=== PATIENT | male | born 1960 | race Caucasian/White ===

== ENCOUNTER → 2018-11-24 10:03 | Outpatient (CLI) | payer OTHER, SELFPAY ==
--- NOTE | 2018-11-24 10:09 | CT_ITS ---
STUDY: CT ABDOMEN AND PELVIS WITH AND WITHOUT CONTRAST REASON FOR EXAM: Male, 58 years old. Hematuria. History of stones. RADIATION DOSAGE (If Supplied By Facility): CTDIvol = ( 17.11 ) mGy, DLP = ( 1260.86 ) mGycm TECHNIQUE: Transaxial images were obtained from the dome of the diaphragm to the symphysis pubis without oral contrast. 100ML IV Isovue 300 was administered. Sagittal and coronal images were reconstructed. Individualized dose optimization techniques were used for this CT. COMPARISON: None. FINDINGS: Mild degree of increased markings at the lung bases suggestive of bibasilar atelectasis. The visualized portions of the heart are within normal limits. There is decreased attenuation of the liver consistent with steatosis. Normal gallbladder and extrahepatic biliary system. Normal spleen. Normal pancreas. Normal bilateral adrenal glands. Mild degree of right hydronephrosis with fullness of the right renal pelvis. Normal left kidney. There is a small hiatal hernia. Normal small intestine. Normal colon. The appendix is visualized and appears normal. There is scattered atherosclerotic calcification of the abdominal aorta, without a demonstrated aneurysm. Normal inferior vena cava. Normal retroperitoneum. Normal urinary bladder. There are prostatic calcifications. Normal abdominal wall. Normal osseous structures. CT/CT Abd/Pelvis W/WO Contrast IMPRESSION: Mild degree of right hydronephrosis. Electronically Signed: Jason Amor, at 11:43 EDT , Service support ,
[2018-11-24 10:51] LABS: CREATININE FINGERSTICK 1.3 mg/dL (0.70-1.30)
== END ==
PROVIDERS: Family Provider Internal Medicine; PCP Family Medicine; Referring Provider Family Medicine; Visit Provider Nurse Practitioner Adult Health
DX: R31.29 Other microscopic hematuria (principal); Z87.442 Personal history of urinary calculi; R59.1 Generalized enlarged lymph nodes
CPT/HCPCS: 74178; Q9967

== ENCOUNTER → 2019-01-15 15:32 | Outpatient (CLI) | payer OTHER, SELFPAY ==
[2019-01-15 18:04] LABS: PSA,Total - Annual Screen 0.72 ng/mL (0.00-4.00)
== END ==
PROVIDERS: Family Provider Family Medicine; PCP Family Medicine; Referring Provider Nurse Practitioner Adult Health; Visit Provider Nurse Practitioner Adult Health
DX: Z12.5 Encounter for screening for malignant neoplasm of prostate (principal)
CPT/HCPCS: 36415; 84153; G0103

== ENCOUNTER → 2019-02-21 07:13 | Outpatient (CLI) | payer OTHER, SELFPAY ==
--- NOTE | 2019-02-21 07:22 | CT_ITS ---
STUDY: CT CHEST WITH CONTRAST REASON FOR EXAM: Male, 58 years old. RADIATION DOSAGE (If Supplied By Facility): CTDIvol = ( 17.54 ) mGy, DLP = ( 626.33 ) mGycm TECHNIQUE: Transaxial imaging was performed following intravenous administration of 100 IV Isovue 300. Individualized dose optimization techniques were used for this CT. COMPARISON: None. FINDINGS: There is no evidence of lymphadenopathy in the axillary area on either side. No retrosternal, paratracheal or hilar adenopathy. The lungs are normal. There is no demonstrated pleural abnormality. Normal heart and pericardium. Normal mediastinum. Normal hilar regions. Normal enhanced pulmonary arteries. Normal aorta arch and descending thoracic aorta. Normal osseous structures. There is no demonstrated abnormality of the visualized upper abdomen. CT/Chest WITH Contrast IMPRESSION: Normal enhanced CT Chest examination. No lymphadenopathy seen in the axillary areas nor within the thoracic cavity. Electronically Signed: Charlotte Cabrera, at 8:50 EDT Tel , Service support ,
== END ==
PROVIDERS: Family Provider Family Medicine; PCP Family Medicine; Referring Provider Family Medicine; Visit Provider Family Medicine
DX: R59.0 Localized enlarged lymph nodes (principal); M79.622 Pain in left upper arm; M79.621 Pain in right upper arm
CPT/HCPCS: 71260; Q9967

== ENCOUNTER → 2019-12-12 12:47 | Outpatient (CLI) | payer OTHER, SELFPAY ==
--- NOTE | 2019-12-12 12:53 | CT_ITS ---
STUDY: CT MAXILLOFACIAL SINUSES REASON FOR EXAM: Male, 59 years old. SINUSITIS X 6 MONTHS RADIATION DOSAGE (If Supplied By Facility): CTDIvol = ( 33.45 ) mGy, DLP = ( 851.63 ) mGycm TECHNIQUE: The patient was scanned in a multi detector CT scanner. High resolution axial imaging was performed without the administration of intravenous contrast material. Sagittal and coronal images were reconstructed. Individualized dose optimization techniques were used for this CT. COMPARISON: None. FINDINGS: FRONTAL SINUSES: Normal aeration, without mucosal inflammatory disease. ETHMOIDAL SINUSES: Normal aeration, without mucosal inflammatory disease. MAXILLARY SINUSES: Normal aeration, without mucosal inflammatory disease. SPHENOIDAL SINUSES: Normal aeration, without mucosal inflammatory disease. There is patency of the bilateral maxillary infundibuli with normal uncinate processes, ethmoid bullae, and hiatus semilunaris. Normal bilateral middle turbinates. Normal bilateral inferior turbinates. There is a left sided nasal septal deviation with a left sided nasal septal spur. There is patency of the bilateral nasal airways. The visualized osseous structures are normal. The visualized bilateral orbital contents are normal. CT/Sinus/Facial Bone IMPRESSION: Nasal septal deviation towards the left side of the midline with a septal spur. Electronically Signed: Jason Amor, at 14:51 EDT , Service support ,
--- NOTE | 2019-12-12 13:00 | RAD_ITS ---
STUDY: X-RAY CHEST REASON FOR EXAM: Male, 59 years old. COUGHING SINCE JUNE ALONG WITH HEADACHES. TECHNIQUE: PA and lateral views of the chest. COMPARISON: Comparison is made with prior examination dated December 15, 2015. FINDINGS: Hyperinflation. Scattered calcified granulomas. There is no demonstrated pleural abnormality. Normal size heart. Normal mediastinum and mike. Normal visualized pulmonary arteries. There is atherosclerotic calcification of the aortic arch with tortuosity. There are degenerative changes of the visualized thoracic spine. Normal visualized ribs, clavicles, and shoulders. There is no demonstrated abnormality of the visualized soft tissue structures of the upper abdomen. RAD/Chest PA and Lateral IMPRESSION: Hyperinflation. No acute abnormality is seen. Electronically Signed: Jason Amor, at 14:41 EDT , Service support ,
== END ==
PROVIDERS: PCP Family Medicine; Referring Provider Otolaryngology; Visit Provider Otolaryngology
DX: J32.9 Chronic sinusitis, unspecified (principal); R05 Cough
CPT/HCPCS: 70486; 71046

== ENCOUNTER → 2020-03-19 10:55 | Outpatient (CLI) | payer OTHER, SELFPAY ==
[2020-03-19 11:18] LABS: Absolute Lymphocyte Count 1.11 X10^3/uL (0.83-4.51); Absolute Neutrophil Count 2.6 X10^3/uL (2.0-7.7); Basophil# 0.02 X10^3/uL; Basophil% 0.5 % (0-1); Eosinophil# 0.02 X10^3/uL; Eosinophils% 0.5 % (0-5); Hematocrit 43.2 % (40-54); Hemoglobin 14.7 g/dL (13.0-16.5); Lymphocyte # 1.11 X10^3/ul (4.0); Mean Corpuscular Hgb 29.6 pg (27.0-32.0); Mean Corpuscular Volume 87.1 fL (80-94); Mean Platelet Vol. 8.7 fl (6.2-12.0); Monocyte# 0.36 X10^3/uL; Monocyte% 8.8 % (0-10); NRBC Flagged by Analyzer 0 % (0-5); Neutrophil # 2.59 X10^3/uL (2.7-7.7); Platelet Count 204 K/mm3 (150-450); RBC Distribution Width CV 13.1 % (11.6-14.6); RBC Distribution Width SD 40.6 fl (35.1-43.9); Red Blood Count 4.96 M/mm3 (4.6-6.2); White Blood Count 4.1 K/mm3 (4.4-11.0)
[2020-03-22 03:06] LABS: Alternaria tenuis <0.10 kU/L (Class 0); Ash, White <0.10 kU/L (Class 0); Aspergillus fumigatus <0.10 kU/L (Class 0); Bermuda Grass <0.10 kU/L (Class 0); Birch <0.10 kU/L (Class 0); Black Walnut <0.10 kU/L (Class 0); Cat Hair / Dander,Stand <0.10 kU/L (Class 0); Cedar, Mountain <0.10 kU/L (Class 0); Cladosporium herbarum <0.10 kU/L (Class 0); Cockroach, American <0.10 kU/L (Class 0); Cottonwood <0.10 kU/L (Class 0); D farinae Mite <0.10 kU/L (Class 0); D pteronyssinus <0.10 kU/L (Class 0); Dog Epithelia <0.10 kU/L (Class 0); Elm, American White <0.10 kU/L (Class 0); Immunoglobulin E 7 IU/mL (6-495); Maple/Box Elder <0.10 kU/L (Class 0); Mulberry, White <0.10 kU/L (Class 0); Oak, White <0.10 kU/L (Class 0); Pecan <0.10 kU/L (Class 0); Penicillium Notatum <0.10 kU/L (Class 0); Pigweed, Rough <0.10 kU/L (Class 0); Ragweed, Short/Common <0.10 kU/L (Class 0); Russian Thistle <0.10 kU/L (Class 0); Sheep Sorrel <0.10 kU/L (Class 0); Sycamore, American <0.10 kU/L (Class 0); Timothy Grass <0.10 kU/L (Class 0)
[2020-03-22 16:07] LABS: Aspirgillus flavus Negative (Neg:<1:1); Aspirgillus fumigatus Negative (Neg:<1:1); Aspirgillus niger Negative (Neg:<1:1); Cytoplasmic Ab (C-ANCA) <1:20 titer (Neg:<1:20)
[2020-03-23 04:44] LABS: Immunoglobulin E 6 IU/mL (6-495); Mouse Urine <0.10 kU/L (Class 0); Perinuclear Ab (P-ANCA) <1:20 titer (Neg:<1:20)
== END ==
PROVIDERS: PCP Family Medicine; Referring Provider Internal Medicine Critical Care Medicine; Visit Provider Internal Medicine Critical Care Medicine
DX: R05 Cough (principal)
CPT/HCPCS: 36415; 82785; 85025; 86003; 86256; 86606

== ENCOUNTER → 2020-05-27 06:24 | Outpatient (CLI) | payer OTHER, SELFPAY ==
--- NOTE | 2020-05-27 10:36 | BRONCHALL_ITS ---
Bronchoprovocation Challenge - Bronchoprovocation Challenge Bronchoprovocation Challenge: BRONCHOPROVOCATION STUDY INTERPRETATION Brief HPI: Patient is a 59 year old male, currently under the care of Dr. Richardson, who presents to [facility] for a bronchoprovocation study secondary to diagnosis of chronic cough. Respiratory therapist reports good effort and reproducible results. Interpretation: Initial spirometry showed no large airways obstructive ventilatory defect. The patient was then given increasingly concentrated doses of methacholine in a stepwise fashion, using a modified ATS protocol. The patient had a significant reduction in FEV1 by 25% and a calculated PD20 of 0.623. Impression: Hyperactivity confirmed at a level nonspecific for asthma
== END ==
PROVIDERS: PCP Family Medicine; Referring Provider Internal Medicine Critical Care Medicine; Visit Provider Internal Medicine Critical Care Medicine
DX: R05 Cough (principal)
CPT/HCPCS: 94070; 95070; J3490; J7674

== ENCOUNTER → 2020-08-13 10:07 | Outpatient (CLI) | payer OTHER, SELFPAY ==
[2020-08-13 10:29] LABS: Absolute Lymphocyte Count 1.01 X10^3/uL (0.83-4.51); Absolute Neutrophil Count 2.9 X10^3/uL (2.0-7.7); Basophil# 0.01 X10^3/uL; Basophil% 0.2 % (0-1); Eosinophil# 0.03 X10^3/uL; Eosinophils% 0.7 % (0-5); Hematocrit 44.1 % (40-54); Hemoglobin 15.1 g/dL (13.0-16.5); Lymphocyte # 1.01 X10^3/ul (4.0); Lymphocyte % 23.6 % (19-41); Mean Corp Hgb Conc 34.2 g/dL (32-36); Mean Corpuscular Hgb 29.3 pg (27.0-32.0); Mean Corpuscular Volume 85.5 fL (80-94); Mean Platelet Vol. 8.9 fl (6.2-12.0); Monocyte# 0.33 X10^3/uL; Monocyte% 7.7 % (0-10); NRBC Flagged by Analyzer 0 % (0-5); Neutrophil # 2.88 X10^3/uL (2.7-7.7); Neutrophil % 67.3 % (47-70); Platelet Count 220 K/mm3 (150-450); RBC Distribution Width SD 40.2 fl (35.1-43.9); Red Blood Count 5.16 M/mm3 (4.6-6.2); White Blood Count 4.3 K/mm3 (4.4-11.0)
[2020-08-16 08:08] LABS: Alternaria alternata <0.10 kU/L (Class 0); Bermuda Grass <0.10 kU/L (Class 0); Bluegrass, Kentucky <0.10 kU/L (Class 0); Cat Hair/Dander, Standard <0.10 kU/L (Class 0); D farinae Mite <0.10 kU/L (Class 0); D pteronyssinus <0.10 kU/L (Class 0); Dog Epithelia <0.10 kU/L (Class 0); Elm, American White <0.10 kU/L (Class 0); Oak, White <0.10 kU/L (Class 0); Plantain, English <0.10 kU/L (Class 0); Ragweed, Short/Common <0.10 kU/L (Class 0)
[2020-08-16 20:07] LABS: Aspirgillus flavus Negative (Neg:<1:1); Aspirgillus fumigatus Negative (Neg:<1:1); Aspirgillus niger Negative (Neg:<1:1)
[2020-08-17 04:36] LABS: Immunoglobulin E 6 IU/mL (6-495)
[2020-08-17 04:42] LABS: Mouse Urine <0.10 kU/L (Class 0)
== END ==
PROVIDERS: PCP Family Medicine; Referring Provider Nurse Practitioner Acute Care; Visit Provider Nurse Practitioner Acute Care
DX: J45.909 Unspecified asthma, uncomplicated (principal)
CPT/HCPCS: 36415; 82785; 85025; 86003; 86606

== ENCOUNTER → 2020-08-26 10:30 | Outpatient (CLI) | payer OTHER, SELFPAY ==
[2020-08-18 10:17] VITALS: BMI 27.8
[2020-08-26 10:47] LABS: Bacteria 0 SEEN /hpf (None Seen); Mucous, Urine 0 SEEN /hpf (<or=2+); White Blood Cells 0 SEEN /hpf (0-5)
[2020-08-26 10:52] LABS: Color, Urine Yellow (Yellow); Glucose, Dipstick Normal (Normal); Ketone-Dipstick 5 mg/dl (Negative); Leukocyte Esterase-Dipstick Negative /ul (Negative); Nitrite-Dipstick Negative (Negative); Occult Blood-Urine 25 /ul (Negative); Protein-Dipstick Negative (Negative); Urine Bilirubin Dipstick Negative (Negative); Urine Clarity Clear (Clear); Urine Urobilinogen Normal (Normal)
[2020-08-26 10:57] LABS: Red Blood Cells-Urine 0-5 SEEN /hpf (0-5); Squamous Epithelial Cells - UA 0-5 SEEN /hpf (0-5)
[2020-08-26 11:28] LABS: Anion Gap 6 (5-15); BUN 18 mg/dL (7-18); Calcium,Total 8.4 mg/dL (8.5-10.1); Chloride 106 mmol/L (98-107); EST Glomerular Filtration Rate 92 mL/min (>60); Est Glom Filt Rate - Afr Amer 111 mL/min (>60); Glucose 105 mg/dL (74-106); PSA,Total - Annual Screen 0.65 ng/mL (0.00-4.00); Potassium 4.1 mmol/L (3.5-5.1); Sodium Level 140 mmol/L (136-145)
== END ==
PROVIDERS: PCP Family Medicine; Referring Provider Nurse Practitioner Adult Health; Visit Provider Nurse Practitioner Adult Health
DX: R31.0 Gross hematuria (principal); N40.1 Benign prostatic hyperplasia with lower urinary tract symptoms; N52.8 Other male erectile dysfunction; Z12.5 Encounter for screening for malignant neoplasm of prostate
CPT/HCPCS: 36415; 80048; 81001; 84153; 84403; G0103

== ENCOUNTER → 2020-08-27 07:55 | Outpatient (CLI) | payer OTHER, SELFPAY ==
[2020-08-18 10:17] VITALS: BMI 27.8
[2020-08-27 09:56] LABS: Cholesterol 231 mg/dL (200); High Density Lipoprotein 43 mg/dL; Triglycerides 306 mg/dL; Very Low Density Lipoprotein 61 mg/dL (5-40)
== END ==
PROVIDERS: PCP Family Medicine; Referring Provider Nurse Practitioner Adult Health; Visit Provider Nurse Practitioner Adult Health
DX: E29.1 Testicular hypofunction (principal)
CPT/HCPCS: 36415; 80061

== ENCOUNTER → 2020-09-02 11:46 | Outpatient (CLI) | payer SELFPAY ==
[2020-08-18 10:17] VITALS: BMI 27.8
[2020-09-02 14:55] LABS: Hematocrit 45.5 % (40-54); Hemoglobin 15.3 g/dL (13.0-16.5); Mean Corp Hgb Conc 33.6 g/dL (32-36); Mean Corpuscular Hgb 29.3 pg (27.0-32.0); Mean Platelet Vol. 9.1 fl (6.2-12.0); Platelet Count 248 K/mm3 (150-450); RBC Distribution Width CV 13.3 % (11.6-14.6); RBC Distribution Width SD 42.1 fl (35.1-43.9); Red Blood Count 5.23 M/mm3 (4.6-6.2); White Blood Count 4.9 K/mm3 (4.4-11.0)
[2020-09-02 15:19] LABS: Luteinizing Hormone 5.7 mIU/mL; Prolactin 4.4 ng/mL
== END ==
PROVIDERS: PCP Family Medicine; Referring Provider Nurse Practitioner Adult Health; Visit Provider Nurse Practitioner Adult Health
DX: E29.1 Testicular hypofunction (principal)
CPT/HCPCS: 36415; 83002; 84146; 85027

== ENCOUNTER → 2021-05-26 10:40 | Outpatient (CLI) | payer SELFPAY ==
--- NOTE | 2021-05-26 09:34 | CYSPIN_PTH ---
PATIENT: SONA LEONARD LOC: [facility] U#:[id number] AGE/SX: 64/M ROOM: RE05/26/[address]: FRANKO [place] : 1960 BED: DIS: SPEC #: [id number] RECD: 05/26/21 13:01 STATUS: SINDY WYATT #: [id number] JODIE: 05/26/21 09:[address]: Alida Varela NP DEPT: CYTOLOGY RECD BY: Mary Kate Sadler ENTERED: 05/26/21 13:01 SP TYPE: CYSPIN FL DEJAN DR: Dr. Mark Sahu MD Tissues: Urine Procedures: Pap Stain (control) Special Stain Group II Cytospin Fluid HEADER OPERATION: Not noted PRE-OP DIAGNOSIS: Asymptomatic microscopic hematuria TISSUE SUBMITTED: Urine for cytology DIAGNOSIS CYTOLOGY Urine for cytology (cytospin): Negative for malignant cells. See comment. JACKELYN:sebastian 05/27/2021 COMMENT The specimen predominantly consists of squamous epithelial cells. A few red blood cells are also noted. CYTOLOGY STUDY Slides are reviewed. CYTOLOGY GROSS Received is 50 ml of yellow clear fluid labeled with the patient's name and and designated per the requisition as urine. Submitted for cytology preparation. / sebastian 05/26/2021 TC:5 CPT: 62299
[2021-05-26 11:20] LABS: Cytology, Body Fluid / CSF SEE PATHOLOGY REPORT
[2021-05-26 11:20] LABS: Bacteria 0 SEEN /hpf (None Seen); Mucous, Urine 0 SEEN /hpf (<or=2+); Red Blood Cells-Urine 0 SEEN /hpf (0-5); Squamous Epithelial Cells - UA 0 SEEN /hpf (0-5); White Blood Cells 0 SEEN /hpf (0-5)
[2021-05-26 11:35] LABS: Color, Urine Yellow (Yellow); Glucose, Dipstick Normal (Normal); Ketone-Dipstick Negative (Negative); Leukocyte Esterase-Dipstick Negative /ul (Negative); Nitrite-Dipstick Negative (Negative); Occult Blood-Urine 25 /ul (Negative); Protein-Dipstick Negative (Negative); Urine Bilirubin Dipstick Negative (Negative); Urine Clarity Clear (Clear); Urine Urobilinogen Normal (Normal)
== END ==
PROVIDERS: PCP Family Medicine; Visit Provider Nurse Practitioner Adult Health
DX: R31.21 Asymptomatic microscopic hematuria (principal)
CPT/HCPCS: 81001; 88108; 88313

== ENCOUNTER → 2021-08-20 15:20 | Outpatient (CLI) | payer MEDICARE, SELFPAY | PROVIDERS: PCP Family Medicine; Visit Provider Otolaryngology Otolaryngology/Facial Plastic Surgery | DX: Z11.59 Encounter for screening for other viral diseases (principal) | CPT/HCPCS: 87635; U0005; U0003 ==

== ENCOUNTER → 2022-07-08 | Outpatient (CLI) | payer SELFPAY ==
--- NOTE | 2022-07-08 08:30 | EKG12_ITS ---
Test Reason : PRE-OP Blood Pressure : / mmHG Vent. Rate : 065 BPM Atrial Rate : 065 BPM P-R Int : 150 ms QRS Dur : 100 ms QT Int : 382 ms P-R-T Axes : 054 067 043 degrees QTc Int : 397 ms Normal sinus rhythm Normal ECG Confirmed by EYAL MOLINA, KIT ([id number]), editor book ROC LAL ([id number]) on 07/13/2022 10:55:10 AM Referred By: RICKI Confirmed By:ROSLYN BIRCH MD
--- NOTE | 2022-07-08 08:42 | RAD_ITS ---
EXAM: XR CHEST, 2 VIEWS CLINICAL INDICATION: PRE OP TECHNIQUE: Frontal and lateral views of the chest. This report was created using [employer] report generation technology. COMPARISON: XR Chest dated 12/12/2019 FINDINGS: LUNGS AND PLEURAL SPACES: Normal. No consolidation or edema. No pneumothorax. No effusion. HEART: Normal heart size. MEDIASTINUM: No mediastinal or hilar mass. BONES/JOINTS: No acute abnormality. SOFT TISSUES: Normal. RAD/Chest PA and Lateral IMPRESSION: No acute cardiopulmonary abnormality. No interval change. Electronically Signed: Mitul Jones MD at 9:50 EST ,
[2022-07-08 09:27] LABS: Absolute Lymphocyte Count 1.15 X10^3/uL (0.83-4.51); Absolute Neutrophil Count 2.9 X10^3/uL (2.0-7.7); Basophil# 0.01 X10^3/uL; Basophil% 0.2 % (0-1); Eosinophil# 0.02 X10^3/uL; Eosinophils% 0.4 % (0-5); Hematocrit 45.6 % (40-54); Hemoglobin 15.3 g/dL (13.0-16.5); Lymphocyte # 1.15 X10^3/ul (0.83-4.51); Lymphocyte % 25.8 % (19-41); Mean Corp Hgb Conc 33.6 g/dL (32-36); Mean Corpuscular Hgb 29.3 pg (27.0-32.0); Mean Corpuscular Volume 87.4 fL (80-94); Monocyte# 0.38 X10^3/uL; Monocyte% 8.5 % (0-10); NRBC Flagged by Analyzer 0 % (0-5); Neutrophil # 2.87 X10^3/uL (2.7-7.7); Neutrophil % 64.7 % (47-70); Platelet Count 209 K/mm3 (150-450); RBC Distribution Width CV 12.7 % (11.6-14.6); RBC Distribution Width SD 40.5 fl (35.1-43.9); Red Blood Count 5.22 M/mm3 (4.6-6.2); White Blood Count 4.5 K/mm3 (4.4-11.0)
[2022-07-08 10:03] LABS: Anion Gap 5 (5-15); BUN 15 mg/dL (7-18); BUN/Creat Ratio 16.8 RATIO (10-20); Chloride 105 mmol/L (98-107); EST Glomerular Filtration Rate 92 mL/min (>60); Est Glom Filt Rate - Afr Amer 111 mL/min (>60); Glucose 104 mg/dL (74-106); Potassium 4.2 mmol/L (3.5-5.1); Sodium Level 138 mmol/L (136-145)
== END | disposition home or self-care (01) ==
PROVIDERS: PCP Family Medicine; Visit Provider Student in an Organized Health Care Education/Training Program
DX: Z01.810 Encounter for preprocedural cardiovascular examination (principal)
CPT/HCPCS: 36415; 71046; 80048; 85025; 93005

== ENCOUNTER → 2022-08-16 | Outpatient (CLI) | payer SELFPAY ==
[2022-08-16 12:15] LABS: Absolute Lymphocyte Count 1.33 X10^3/uL (0.83-4.51); Absolute Neutrophil Count 2.7 X10^3/uL (2.0-7.7); Basophil# 0.01 X10^3/uL; Basophil% 0.2 % (0-1); Eosinophil# 0.03 X10^3/uL; Eosinophils% 0.7 % (0-5); Hematocrit 44.3 % (40-54); Hemoglobin 15.1 g/dL (13.0-16.5); Lymphocyte # 1.33 X10^3/ul (0.83-4.51); Lymphocyte % 30.1 % (19-41); Mean Corp Hgb Conc 34.1 g/dL (32-36); Mean Corpuscular Hgb 29.8 pg (27.0-32.0); Mean Corpuscular Volume 87.5 fL (80-94); Mean Platelet Vol. 9.4 fl (6.2-12.0); Monocyte# 0.32 X10^3/uL; Monocyte% 7.2 % (0-10); NRBC Flagged by Analyzer 0 % (0-5); Neutrophil # 2.72 X10^3/uL (2.7-7.7); Neutrophil % 61.6 % (47-70); Platelet Count 231 K/mm3 (150-450); RBC Distribution Width CV 13.1 % (11.6-14.6); RBC Distribution Width SD 41.7 fl (35.1-43.9); Red Blood Count 5.06 M/mm3 (4.6-6.2); White Blood Count 4.4 K/mm3 (4.4-11.0)
[2022-08-16 12:31] LABS: Anion Gap 4 (5-15); BUN 18 mg/dL (7-18); BUN/Creat Ratio 18.1 RATIO (10-20); Chloride 104 mmol/L (98-107); Creatinine, Serum 0.99 mg/dL (0.70-1.30); EST Glomerular Filtration Rate 82 mL/min (>60); Est Glom Filt Rate - Afr Amer 99 mL/min (>60); Glucose 97 mg/dL (74-106); PSA,Total - Annual Screen 0.96 ng/mL (0.00-4.00); Potassium 4.1 mmol/L (3.5-5.1); Sodium Level 137 mmol/L (136-145)
== END | disposition home or self-care (01) ==
PROVIDERS: PCP Family Medicine; Referring Provider Student in an Organized Health Care Education/Training Program; Visit Provider Student in an Organized Health Care Education/Training Program
DX: Z01.818 Encounter for other preprocedural examination (principal); Z12.5 Encounter for screening for malignant neoplasm of prostate
CPT/HCPCS: 36415; 80048; 84153; 85025; G0103

== ENCOUNTER → 2023-08-09 | Outpatient (CLI) | payer SELFPAY ==
[2023-08-09 10:18] LABS: PSA,Total - Annual Screen 0.72 ng/mL (0.00-4.00)
== END | disposition home or self-care (01) ==
LOC: LAB 08:32
PROVIDERS: PCP Family Medicine; Referring Provider Nurse Practitioner; Visit Provider Nurse Practitioner
DX: Z12.5 Encounter for screening for malignant neoplasm of prostate (principal)
CPT/HCPCS: 36415; 84153; G0103

== ENCOUNTER → 2024-07-25 | Outpatient (CLI) | payer SELFPAY | END | disposition home or self-care (01) | LOC: LABSPEC 15:58 | PROVIDERS: PCP Family Medicine; Referring Provider Otolaryngology Otolaryngology/Facial Plastic Surgery; Visit Provider Otolaryngology Otolaryngology/Facial Plastic Surgery | DX: J02.9 Acute pharyngitis, unspecified (principal) | CPT/HCPCS: 87070; 87077; 87186 ==

== ENCOUNTER → 2024-08-07 | Outpatient (CLI) | payer SELFPAY | END | disposition home or self-care (01) | LOC: LAB 08:52 | PROVIDERS: PCP Physician Assistant; Referring Provider Nurse Practitioner; Visit Provider Nurse Practitioner | DX: E29.1 Testicular hypofunction (principal); Z12.5 Encounter for screening for malignant neoplasm of prostate | CPT/HCPCS: 36415; 84153; 84403; G0103 ==

== ENCOUNTER → 2024-08-16 | Outpatient (CLI) | payer SELFPAY | END | disposition home or self-care (01) | LOC: LABSPEC 15:27 | PROVIDERS: PCP Physician Assistant; Referring Provider Otolaryngology Otolaryngology/Facial Plastic Surgery; Visit Provider Otolaryngology Otolaryngology/Facial Plastic Surgery | DX: J02.9 Acute pharyngitis, unspecified (principal) | CPT/HCPCS: 87070 ==

== ENCOUNTER → 2024-11-17 | Outpatient (CLI) | payer SELFPAY ==
--- NOTE | 2024-11-17 | LES_PTH ---
PATIENT: JONI LEONARD LOC: [facility] U#:[id number] AGE/SX: 64/M ROOM: RE11/17/[address]: Dr. Sami Swain MD : 1960 BED: DIS: 11/17/2024 SPEC #: [id number] RECD: 11/19/24 10:40 STATUS: SINDY REQ #: [id number] JODIE: 11/17/24 00:[address]: Sami Swain DEPT: SURGICAL PATHOLOGY RECD BY: Stanislav Mahajan ENTERED: 11/19/24 10:41 SP TYPE: Lesion OTHR DR: DARLINE Fisher Tissues: A - Skin of face, NOS Procedures: Surgery Specimen Level IV HEADER OPERATION: Permanent pathology PRE-OP DIAGNOSIS: Leukoplakia TISSUE SUBMITTED: A- Right cheek biopsy MICROSCOPIC DIAGNOSIS A. Skin, right cheek, leukoplakia, biopsy: * Benign squamous proliferation - see note. Note: Tangential orientation of the tissue is noted. Deeper sections are examined. No hyperkeratosis is observed. MICROSCOPIC DESCRIPTION Slides are reviewed. GROSS DESCRIPTION Received in formalin labeled, Joni Leonard and designated right cheek, is a diaz, granular, unoriented, irregularly-shaped, soft tissue fragment that measures 0.3 x 0.3 x 0.2 cm. Specimen is inked black and totally submitted in one cassette. SCARLETT 11/19/2024 CPT:95254
== END | disposition home or self-care (01) ==
LOC: LABSPEC 11:21
PROVIDERS: PCP Physician Assistant; Referring Provider Otolaryngology Otolaryngology/Facial Plastic Surgery; Visit Provider Otolaryngology Otolaryngology/Facial Plastic Surgery
DX: K13.29 Other disturbances of oral epithelium, including tongue (principal)
CPT/HCPCS: 88305

== ENCOUNTER → 2025-05-16 | Outpatient (CLI) | payer SELFPAY ==
--- NOTE | 2025-05-16 08:39 | MRI_ITS ---
PROCEDURE: LOWER EXT JOINT ONLY (ROUTINE) 05/16/2025 REASON FOR EXAM: PAIN, x years. TECHNIQUE: Procedure Code: MRILEJ Modality: MR Procedure: MRI of the right hip without contrast. Multiplanar and multisequence images were obtained without IV contrast administration. COMPARISON: COMPARISON : None provided. FINDINGS: Degenerative changes are seen of the visualized portions of the lower lumbar spine. Sacroiliac joints appear symmetric and within the normal range. Minimal degenerative changes of the hip joints are seen, without significant degree of articular cartilage thinning. No evidence of femoral head osteonecrosis. No joint effusion is seen. No abnormal muscle signal is seen. No free or loculated fluid collection is noted. MRI/Lower Ext Joint Only (Routine) IMPRESSION: 1. Degenerative changes seen of the visualized lower lumbar spine. 2. Minimal hip joint degenerative changes. 3. No acute process is seen. [id number]
== END | disposition home or self-care (01) ==
LOC: MRI 08:35
PROVIDERS: PCP Physician Assistant; Referring Provider Physician Assistant; Visit Provider Physician Assistant
DX: M25.551 Pain in right hip (principal)
CPT/HCPCS: 73721

== ENCOUNTER 2025-06-25 21:25 | Emergency (ER) | payer SELFPAY ==
[2025-06-25 21:26] VITALS: BP 110/73; PULSE 113; RESP 24; TEMP 37.3; O2SAT 97; BMI 23.6
[2025-06-25 21:42] VITALS: BP 99/71; PULSE 105; RESP 29; TEMP 37.6; O2SAT 100; O2SAT 96
[2025-06-25 21:56] VITALS: PULSE 100; RESP 24
[2025-06-25 21:59] VITALS: O2SAT 100
[2025-06-25 22:01] LABS: Mucous, Urine 0 SEEN /hpf (<or=2+); Squamous Epithelial Cells - UA 0 SEEN /hpf (0-5)
--- NOTE | 2025-06-25 22:04 | RAD_ITS ---
PROCEDURE: RAD/Chest 1 View (Portable)
[2025-06-25 22:06] LABS: Color, Urine Yellow (Yellow); Glucose, Dipstick Normal (Normal); Ketone-Dipstick 5 mg/dl (Negative); Leukocyte Esterase-Dipstick 25 /ul (Negative); Nitrite-Dipstick Negative (Negative); Occult Blood-Urine 150 /ul (Negative); Protein-Dipstick 30 mg/dl (Negative); Specific Gravity, Urine 1.020 (1.002-1.030); Urine Bilirubin Dipstick Negative (Negative)
[2025-06-25 22:12] LABS: Red Blood Cells-Urine 5-10 SEEN /hpf (0-5)
[2025-06-25 22:24] LABS: Anion Gap 12 (5-15); BUN 20 mg/dL (4-19); BUN/Creat Ratio 19.6 RATIO (10-20); Calcium,Total 9.2 mg/dL (7.6-11.0); Carbon Dioxide 21.5 mmol/L (21.0-32.0); Chloride 100 mmol/L (98-108); Estimated Creatinine Clearance 73.41 ml/min (50-250); Glucose 119 mg/dL (70-99); Hematocrit 41.6 % (40-54); Hemoglobin 14.7 g/dL (13.0-16.5); Immature Granulocytes Count 0.030 X10^3/uL (0.0-0.0); Mean Corp Hgb Conc 35.3 g/dL (32-36); Mean Corpuscular Volume 85.6 fL (80-94); Mean Platelet Vol. 9.7 fl (6.2-12.0); NRBC Flagged by Analyzer 0 % (0-5); POSITIVE DIFFERENTIAL YES; Platelet Count 204 K/mm3 (150-450); Potassium 4.2 mmol/L (3.3-5.1); RBC Distribution Width CV 13.0 % (11.6-14.6); RBC Distribution Width SD 40.4 fl (35.1-43.9); Red Blood Count 4.86 M/mm3 (4.6-6.2); White Blood Count 4.7 K/mm3 (4.4-11.0)
[2025-06-25 22:28] VITALS: BP 102/67; PULSE 100; RESP 28; TEMP 37.3; O2SAT 96
--- NOTE | 2025-06-25 22:44 | ED.VIS.DYS ---
HPI History of Present Illness Chief Complaint: Shortness of Breath Narrative Narrative: 64-year-old male past medical history of asthma presents with his because of intermittent fevers that he is had over the last few days, as well as UTI type symptoms since Tuesday, 4 days ago. He states he did a urine dipstick at home and thought he had a urinary tract infection, he took his 's Cipro and started that but is still having dysuria. Additionally, he states he feels very short of breath. [facility] Medical History History of colon polyps BPH (benign prostatic hyperplasia) Insomnia Acid reflux WILLIE (obstructive sleep apnea) Home Medications ?Medication ?Instructions ?Recorded ?Last Taken ?Type lansoprazole 30 mg capsule,delayed 30 mg PO DAILY 03/19/20 Unknown History release tadalafil 2.5 mg tablet 2.5 mg PO DAILY 03/19/20 Unknown History trazodone 50 mg tablet 50 mg PO DAILY 03/19/20 Unknown History albuterol sulfate 2.5 mg/3 mL 2.5 mg (3 mL) continuous 08/18/20 Unknown Clinic (0.083 %) solution for nebulization nebulization ONCE #1 mL ipratropium 0.5 mg-albuterol 2.5 2.5 ml continuous nebulization 08/18/20 Unknown Clinic mg/2.5 mL solution for nebulization ONCE ##1 omega 0-uyy-pwv-fish oil 300 1 cap PO QDAY 06/19/24 Unknown History mg-1,000 mg capsule (Fish Oil) testosterone 50 mg/5 gram (1 %) 1 tube transdermal QAM 06/19/24 Unknown History transdermal gel azelastine 137 mcg-fluticasone 50 1 spray intranasal BID #6 ea 07/17/24 Unknown Rx mcg/spray nasal spray (Dymista) budesonide-formoterol HFA 160 2 puff inhalation BID #6 ea 07/17/24 Unknown Rx mcg-4.5 mcg/actuation aerosol inhaler (Symbicort) ipratropium bromide 42 mcg (0.06 2 spray intranasal TID #15 mL 07/17/24 Unknown Rx %) nasal spray montelukast 10 mg tablet 10 mg PO QHS #180 tabs 11/19/24 Unknown Rx albuterol sulfate 2.5 mg/3 mL 2.5 mg (3 mL) inhalation Q4H PRN 04/19/25 Unknown Rx (0.083 %) solution for nebulization shortness of breath or wheezing #180 mL albuterol sulfate 90 mcg/actuation 2 puff inhalation Q4H PRN 04/19/25 Unknown Rx aerosol inhaler shortness of breath or wheezing #1 device prednisone 20 mg tablet 40 mg (2 x 20 mg) PO DAILY 7 days 06/25/25 Unknown Rx #14 tabs sulfamethoxazole 800 1 tab PO BID #14 tabs 06/25/25 Unknown Rx mg-trimethoprim 160 mg tablet (Bactrim DS) Allergy/AdvReac Type Severity Reaction Status Date / Time [id number] Reductase Allergy Intermediate Other Verified 06/25/25 21:26 Inhibitor azithromycin Allergy Unknown Other Verified 06/25/25 21:26 Family History Father Cancer Colon cancer Hypertension Mother Diabetes Surgical History History of kidney surgery Social History (Updated 06/25/25 @ 21:43 by Sulema Phipps) housing: house Smoking Status: Never smoker alcohol intake: never EXAM Physical Exam Narrative Exam Narrative: Temperature 99.6 ?F. Vital signs noted. Cardiovascular examination reveals intermittent tachycardia. Lungs are clear to auscultation bilaterally but prolonged expiratory phase. Mild tachypnea. No overt wheezing or stridor. Abdomen soft and nontender with normoactive bowel sounds. No pedal edema bilaterally. Neurological examination nonfocal, nonlateralizing. Const Vital Signs: 06/25/25 21:26 06/25/25 21:42 06/25/25 21:42 Temperature 99.2 F H 99.6 F H Temperature Source Oral Oral Pulse Rate 113 H 105 H Respiratory Rate 24 H 29 H Respiratory Effort Short of Breath Respiratory Depth Shallow Respiratory Pattern Tachypnea Blood Pressure 110/73 99/71 Blood Pressure Mean 85 80 Pulse Ox 97 100 Oxygen Delivery Method Room Air Room Air Room Air 06/25/25 21:56 06/25/25 21:59 06/25/25 22:28 Temperature 99.2 F H Temperature Source Oral Pulse Rate 100 100 Respiratory Rate 24 H 28 H Respiratory Effort Respiratory Depth Respiratory Pattern Tachypnea Blood Pressure 102/67 Blood Pressure Mean 78 Pulse Ox 100 96 Oxygen Delivery Method Room Air MDM MDM MDM Narrative Medical decision making narrative: Differential diagnosis includes but not limited to asthma exacerbation versus pneumonia versus UTI versus viral syndrome including COVID versus RSV versus influenza. Patient states he has a nebulizer at home. He used his inhaler today and did 1 breathing treatment. He was given a DuoNeb aerosolized treatment here in the emergency department and on repeat examination states he feels improved. Pulse ox remains 96 to 97% on room air without evidence of hypoxia. Comprehensive workup was pursued. EKG obtained and interpreted by myself independently as sinus tachycardia at [address] changes. No STEMI. I reviewed his laboratory work and he has normal white count of 4.7 with hemoglobin normal at 14.7, platelet count normal at 204. Sodium 134 with potassium normal at 4.2, BUN slightly elevated at 20 with a normal creatinine of 1.03, glucose 119 with a normal anion gap of 12. His urinalysis while showing 0-5 WBCs, has 2+ bacteria. This was sent for culture. I do feel that he requires antibiotic treatment as he is having dysuria, and he already started leftover ciprofloxacin. He was given his first dose of Bactrim DS here and prescription written for the next week to take twice a day. Chest x-ray in 1 view interpreted by myself independently shows no consolidation, no acute process, no pneumothorax. I reviewed the radiology report which confirms my independent interpretation. He states that he has his nebulizer machine at home with enough treatments. He was told to use these every 4-6 hours as needed especially over the next 48 hours. He will be placed on a prednisone burst/pulse of 40 mg daily for the next 7 days. At this point in time, I do feel he can be discharged to follow-up with his primary care provider. Return instructions to the emergency department were reviewed. Disposition is discharged home in stable condition. History & Record Review Discussion w/independent historian: Patient and Family () Additional record(s) reviewed:: No prior records (No prior ED visit) Lab Data Attestation: I reviewed the patient's lab results. Labs: Laboratory Results - last 24 hr 06/25/25 06/25/25 21:36 21:53 WBC 4.7 RBC 4.86 Hgb 14.7 Hct 41.6 MCV 85.6 MCH 30.2 MCHC 35.3 RDW Std Deviation 40.4 RDW Coeff of Anna 13.0 Plt Count 204 MPV 9.7 Immature Gran % (Auto) 0.600 Neut % (Auto) 77.6 H Lymph % (Auto) 10.0 L [place] % (Auto) 9.3 Eos % (Auto) 2.1 Baso % (Auto) 0.4 Absolute Neuts (auto) 3.7 Absolute Lymphs (auto) 0.47 L Nucleated RBC % 0 Sodium 134 Potassium 4.2 Chloride 100 Carbon Dioxide 21.5 Anion Gap 12 BUN 20 H Creatinine 1.03 Estim Creat Clear Calc 73.41 Est GFR (MDRD) Non-Af 82 BUN/Creatinine Ratio 19.6 Glucose 119 H Calcium 9.2 Urine Color Yellow Urine Clarity Clear Urine pH 5.0 Ur Specific [place] 1.020 Urine Protein 30 H Urine Glucose (UA) Normal Urine Ketones 5 H Urine Occult Blood 150 H Urine Nitrite Negative Urine Bilirubin Negative Urine Urobilinogen Normal Ur Leukocyte Esterase 25 H Urine RBC 5-10 SEEN Urine WBC 0-5 SEEN Ur Squamous Epith Cells 0 SEEN Urine Bacteria 2+ Urine Mucus 0 SEEN Radiography Diagnostic Testing: Clinical Impression(s) from Imaging Studies Chest X-Ray 06/25/25 22:04 IMPRESSION: No acute cardiopulmonary disease. Reading Location: [id number] Discharge Plan Triage Chief Complaint: Shortness of Breath Other Complaint: Complaint ED Provider: Mannie Oakley Dx/Rx/DC Orders Clinical Impression: Asthma, UTI (urinary tract infection), SOB (shortness of breath) Instructions: ED Asthma, Acute (Adult), ED Urinary Tract Infections in Men Prescriptions: New prednisone 20 mg tablet 40 mg PO DAILY 7 Days Qty: 14 0RF sulfamethoxazole-trimethoprim [Bactrim DS] 800-160 mg tablet 1 tab PO BID Qty: 14 0RF No Action tadalafil 2.5 mg tablet 2.5 mg PO DAILY trazodone 50 mg tablet 50 mg PO DAILY lansoprazole 30 mg capsule,delayed release(DR/EC) 30 mg PO DAILY albuterol sulfate 2.5 mg /3 mL (0.083 %) solution for nebulization 2.5 mg continuous nebulization ONCE Qty: 1 0RF ipratropium-albuterol 0.5-2.5 mg/2.5 mL solution for nebulization 2.5 ml continuous nebulization ONCE Qty: 1 0RF ipratropium bromide 42 mcg (0.06 %) spray,non-aerosol 2 spray INTRANASAL TID Qty: 15 3RF Rx Instructions: administer into each nostril budesonide-formoterol [Symbicort] 160-4.5 mcg/actuation HFA aerosol inhaler 2 puff INHALATION BID Qty: 6 2RF Rx Instructions: 2 puffs inhalation BID azelastine-fluticasone [Dymista] 137-50 mcg/spray spray,non-aerosol 1 spray INTRANASAL BID Qty: 6 2RF Rx Instructions: administer into each nostril montelukast 10 mg tablet 10 mg PO QHS Qty: 180 2RF testosterone 50 mg/5 gram (1 %) gel 1 tube transdermal QAM omega 9-ttj-cgi-fish oil [Fish Oil] 300-1,000 mg capsule 1 cap PO QDAY albuterol sulfate 2.5 mg /3 mL (0.083 %) solution for nebulization 2.5 mg INHALATION Q4H PRN (Reason: shortness of breath or wheezing) Qty: 180 3RF albuterol sulfate 90 mcg/actuation HFA aerosol inhaler 2 puff inhalation Q4H PRN (Reason: shortness of breath or wheezing) Qty: 1 3RF Rx Instructions: administer with spacer Primary Care Provider: Charlie Knowles Referrals: Charlie Knowles PA [Primary Care Provider, Family Practice] Activity Restrictions/Additional Instructions: Use your albuterol nebulizer treatment every 4 hours to every 6 hours as needed for shortness of breath, especially over the next 2 days. Take your own antibiotic for UTI type symptoms. Additionally, take the steroid burst for the next week as well. Return to the emergency department with increased difficulty breathing, new or worsening symptoms. Tylenol and/or ibuprofen as needed for pain. Print Language: Telugu Disposition Disposition: Home, Self Care
[2025-06-25] MEDS: Smz/Tmp Ds Tablet 1 TABLET PO (23:00)
[2025-06-25 23:11] VITALS: BP 100/69; PULSE 96; RESP 27; TEMP 37.2; O2SAT 100
== END 2025-06-25 23:15 | disposition home or self-care (01) ==
PROVIDERS: Emergency Provider Emergency Medicine; PCP Physician Assistant; Visit Provider Emergency Medicine
DX: R06.02 Shortness of breath (principal); N39.0 Urinary tract infection, site not specified; J45.909 Unspecified asthma, uncomplicated; K21.9 Gastro-esophageal reflux disease without esophagitis; Z79.899 Other long term (current) drug therapy
CPT/HCPCS: 71045; 80048; 81001; 85025; 87086; 87631; 93005; 94640; 96374; 99284; A4216

== ENCOUNTER → 2025-07-08 | Outpatient (CLI) | payer SELFPAY | END | disposition home or self-care (01) | LOC: LABSPEC 16:08 | PROVIDERS: PCP Physician Assistant; Referring Provider Urology; Visit Provider Urology | DX: N39.0 Urinary tract infection, site not specified (principal) | CPT/HCPCS: 87086 ==

== ENCOUNTER → 2025-08-08 | Outpatient (CLI) | payer SELFPAY | END | disposition home or self-care (01) | LOC: LABSPEC 15:07 | PROVIDERS: PCP Physician Assistant; Referring Provider Nurse Practitioner; Visit Provider Nurse Practitioner | DX: R30.0 Dysuria (principal) | CPT/HCPCS: 87077; 87086; 87088; 87186 ==